=== PATIENT | female | born 1980 | race Caucasian/White ===

== ENCOUNTER 2022-03-16 19:18 | Emergency (ER) | payer BC ==
[~2022-03-16] VITALS: Ht 162.6 cm; Wt 90.7 kg
[2022-03-16] MEDS ORDERED: CEFDINIR250 MG/5 M PO (20:27)
== END 2022-03-16 20:32 | disposition home or self-care (01) ==
LOC: ER 19:48
DX: R50.9 Fever, unspecified (principal); J02.8 Acute pharyngitis due to other specified organisms; N39.0 Urinary tract infection, site not specified; I10 Essential (primary) hypertension
CPT/HCPCS: 99282